=== PATIENT | male | born 1950 | race Caucasian/White ===

== ENCOUNTER 2018-10-25 14:08 | Outpatient (RCR) | payer MEDICARE, OTHER | END 2018-10-26 | disposition home or self-care (01) | LOC: ONC 14:08 | PROVIDERS: ATTEND Radiology Radiation Oncology | DX: Z51.0 Encounter for antineoplastic radiation therapy (principal); C61 Malignant neoplasm of prostate | CPT/HCPCS: 77300; 77301; 77334; 77336; 77338; 77385; 99204 ==

== ENCOUNTER 2019-01-14 10:56 | Outpatient (RCR) | payer MEDICARE, OTHER | END 2019-01-25 | disposition home or self-care (01) | LOC: ONC 10:56 | PROVIDERS: ATTEND Radiology Radiation Oncology | DX: Z51.0 Encounter for antineoplastic radiation therapy (principal); C61 Malignant neoplasm of prostate | CPT/HCPCS: 36415; 77336; 77385; 84153; 99213 ==